=== PATIENT | female | born 1970 | race Caucasian/White ===

== ENCOUNTER 2016-10-17 22:33 | Emergency (ER) | payer BC ==
--- NOTE | 2016-10-17 22:57 | EDM.PDOC ---
ED HPI GENERAL MEDICAL PROBLEM - General Chief Complaint: Abdominal Pain Stated Complaint: ABDOMINAL PAIN Time Seen by Provider: 10/17/16 22:57 Source of Information: Reports: Patient - History of Present Illness INITIAL COMMENTS - FREE TEXT/NARRATIVE: HISTORY AND PHYSICAL: History of present illness: []Right upper quadrant pain over the last 4 days associated with greasy food over the holiday reclined tonight complains of 6 out of 10 right upper quadrant pain No fever nausea vomiting chills sweats Review of systems: As per history of present illness and below otherwise all systems reviewed and negative. Past medical history: As per history of present illness and as reviewed below otherwise noncontributory. Surgical history: As per history of present illness and as reviewed below otherwise noncontributory. Social history: No reported history of drug or alcohol abuse. Family history: As per history of present illness and as reviewed below otherwise noncontributory. Physical exam: HEENT: Atraumatic, normocephalic, pupils reactive, negative for conjunctival pallor or scleral icterus, mucous membranes moist, throat clear, neck supple, nontender, trachea midline. Lungs: Clear to auscultation, breath sounds equal bilaterally, chest nontender. Heart: S1S2, regular, negative for clicks, rubs, or JVD. Abdomen: Soft, nondistended, nontender in lower quadrants right upper quadrant tenderness on deep palpation. Negative for masses or hepatosplenomegaly. Negative for costovertebral tenderness. Pelvis: Stable nontender. Genitourinary: Deferred. Rectal: Deferred. Extremities: Atraumatic, negative for cords or calf pain. Neurovascular unremarkable. Neuro: Awake, alert, oriented. Cranial nerves II through XII unremarkable. Cerebellum unremarkable. Motor and sensory unremarkable throughout. Exam nonfocal. Diagnostics: []Lab as below Therapeutics: []1 L normal saline bolus Toradol 30 mg IV Protonix 80 mg IV Zofran 8 mg IV Cipro 500 mg by mouth twice a day #20 no refill [place] Karnes diet Follow-up with surgery referral provided Impression: Right upper quadrant pain-resolved Cholelithiasis Biliary colic Definitive disposition and diagnosis as appropriate pending reevaluation and review of above. abdomen Pain Score (Numeric/FACES): 8 - Related Data Allergies Allergy/AdvReac Type Severity Reaction Status Date / Time Penicillins Allergy Rash Verified 10/17/16 22:56 Home Meds: Home Meds Control 10/17/16 [History] ED ROS GENERAL - Review of Systems Review Of Systems: ROS reveals no pertinent complaints other than HPI. ED EXAM, GENERAL - Physical Exam Exam: See Below Course - Vital Signs Last Recorded V/S: Last Vital Signs Temp 36.3 C 10/17/16 23:01 Pulse 66 10/17/16 23:01 Resp 18 10/17/16 23:01 BP 178/93 H 10/17/16 23:01 Pulse Ox 100 10/17/16 23:01 - Orders/Labs/Meds Orders: Active Orders 24 hr Category Date Time Status Abdomen Ltd [US] Stat Exams 10/17/16 23:41 Taken Sodium Chloride 0.9% [Normal Saline] 1,000 ml Med 10/17/16 23:00 Active IV STAT Medication Orders Sodium Chloride (Normal Saline) 1,000 mls @ 125 mls/hr IV STAT JONATHAN Last Admin: 10/18/16 00:12 Dose: 125 mls/hr Labs: Laboratory Tests 10/17/16 10/17/16 10/17/16 Range/Units 23:30 23:30 23:30 WBC 14.15 H (4.0-11.0) K/uL RBC 5.08 (4.30-5.90) M/uL Hgb 14.0 (12.0-16.0) g/dL Hct 42.2 (36.0-46.0) % MCV 83.1 (80.0-98.0) fL MCH 27.6 (27.0-32.0) pg MCHC 33.2 (31.0-37.0) g/dL RDW Std Deviation 42.0 (28.0-62.0) fl RDW Coeff of Quan 14 (11.0-15.0) % Plt Count 399 (150-400) K/uL MPV 11.10 (7.40-12.00) fL Neut % (Auto) 76.5 (48.0-80.0) % Lymph % (Auto) 15.0 L (16.0-40.0) % [place] % (Auto) 6.1 (0.0-15.0) % Eos % (Auto) 1.9 (0.0-7.0) % Baso % (Auto) 0.5 (0.0-1.5) % Neut # (Auto) 10.8 H (1.4-5.7) K/uL Lymph # (Auto) 2.1 (0.6-2.4) K/uL [place] # (Auto) 0.9 H (0.0-0.8) K/uL Eos # (Auto) 0.3 (0.0-0.7) K/uL Baso # (Auto) 0.1 (0.0-0.1) K/uL Nucleated RBC % 0.0 /100WBC Nucleated RBCs # 0 K/uL Sodium 140 (136-146) mmol/L Potassium 3.6 (3.5-5.1) mmol/L Chloride 107 (98-110) mmol/L Carbon Dioxide 21 (21-31) mmol/L BUN 13 (6.0-23.0) mg/dL Creatinine 0.9 (0.6-1.5) mg/dL Est Cr Clr Drug Dosing 68.88 mL/min Estimated GFR (MDRD) > 60.0 ml/min Glucose 121 H (60-110) mg/dL Calcium 9.6 (8.8-10.8) mg/dL Total Bilirubin 0.3 (0.1-1.5) mg/dL AST 13 (5-40) IU/L ALT 16 (8-54) IU/L Alkaline Phosphatase 97 (40-150) Troponin I < 0.10 (0.0-0.29) NG/ML Total Protein 7.4 (6.0-8.0) g/dL Albumin 4.3 (3.5-5.0) g/dL Globulin 3.1 (2.0-3.5) g/dL Albumin/Globulin Ratio 1.4 (1.3-2.8) Amylase 67 (10-90) U/L Lipase 31 (7-80) U/L Urine Color Urine Appearance Urine pH (5.0-8.0) Ur Specific [place] (1.001-1.035) Urine Protein (NEGATIVE) mg/dL Urine Glucose (UA) (NEGATIVE) mg/dL Urine Ketones (NEGATIVE) mg/dL Urine Occult Blood (NEGATIVE) Urine Nitrite (NEGATIVE) Urine Bilirubin (NEGATIVE) Urine Urobilinogen (<2.0) EU/dL Ur Leukocyte Esterase (NEGATIVE) Urine RBC (0-2/HPF) Urine WBC (0-5/HPF) Ur Epithelial Cells (NONE-FEW) Amorphous Sediment (NEGATIVE) Urine Bacteria (NEGATIVE) Urine Mucus (NONE-MOD) Urine HCG, Qual (NEGATIVE) 10/17/16 10/17/16 Range/Units 23:30 23:30 WBC (4.0-11.0) K/uL RBC (4.30-5.90) M/uL Hgb (12.0-16.0) g/dL Hct (36.0-46.0) % MCV (80.0-98.0) fL MCH (27.0-32.0) pg MCHC (31.0-37.0) g/dL RDW Std Deviation (28.0-62.0) fl RDW Coeff of Quan (11.0-15.0) % Plt Count (150-400) K/uL MPV (7.40-12.00) fL Neut % (Auto) (48.0-80.0) % Lymph % (Auto) (16.0-40.0) % [place] % (Auto) (0.0-15.0) % Eos % (Auto) (0.0-7.0) % Baso % (Auto) (0.0-1.5) % Neut # (Auto) (1.4-5.7) K/uL Lymph # (Auto) (0.6-2.4) K/uL [place] # (Auto) (0.0-0.8) K/uL Eos # (Auto) (0.0-0.7) K/uL Baso # (Auto) (0.0-0.1) K/uL Nucleated RBC % /100WBC Nucleated RBCs # K/uL Sodium (136-146) mmol/L Potassium (3.5-5.1) mmol/L Chloride (98-110) mmol/L Carbon Dioxide (21-31) mmol/L BUN (6.0-23.0) mg/dL Creatinine (0.6-1.5) mg/dL Est Cr Clr Drug Dosing mL/min Estimated GFR (MDRD) ml/min Glucose (60-110) mg/dL Calcium (8.8-10.8) mg/dL Total Bilirubin (0.1-1.5) mg/dL AST (5-40) IU/L ALT (8-54) IU/L Alkaline Phosphatase (40-150) Troponin I (0.0-0.29) NG/ML Total Protein (6.0-8.0) g/dL Albumin (3.5-5.0) g/dL Globulin (2.0-3.5) g/dL Albumin/Globulin Ratio (1.3-2.8) Amylase (10-90) U/L Lipase (7-80) U/L Urine Color YELLOW Urine Appearance CLEAR Urine pH 5.5 (5.0-8.0) Ur Specific [place] >= 1.030 (1.001-1.035) Urine Protein NEGATIVE (NEGATIVE) mg/dL Urine Glucose (UA) NEGATIVE (NEGATIVE) mg/dL Urine Ketones NEGATIVE (NEGATIVE) mg/dL Urine Occult Blood TRACE-LYSED (NEGATIVE) Urine Nitrite NEGATIVE (NEGATIVE) Urine Bilirubin NEGATIVE (NEGATIVE) Urine Urobilinogen 0.2 (<2.0) EU/dL Ur Leukocyte Esterase SMALL (NEGATIVE) Urine RBC 0-2 (0-2/HPF) Urine WBC 2-5 (0-5/HPF) Ur Epithelial Cells FEW (NONE-FEW) Amorphous Sediment FEW (NEGATIVE) Urine Bacteria 1+ H (NEGATIVE) Urine Mucus FEW (NONE-MOD) Urine HCG, Qual NEGATIVE (NEGATIVE) Meds: Medications Generic Name Dose Route Start Last Admin Trade Name Comfort PRN Reason Stop Dose Admin Sodium Chloride 1,000 mls @ 125 mls/hr 10/17/16 23:00 10/18/16 00:12 Normal Saline IV 125 mls/hr STAT JONATHAN Administration Discontinued Medications Generic Name Dose Route Start Last Admin Trade Name Comfort PRN Reason Stop Dose Admin Ciprofloxacin 500 mg 10/18/16 01:20 Ciprofloxacin Hcl PO 10/18/16 01:21 ONETIME ONE Ketorolac Tromethamine 30 mg 10/17/16 23:41 10/18/16 00:12 Toradol IVPUSH 10/17/16 23:42 30 mg ONETIME ONE Administration Ondansetron HCl 8 mg 10/17/16 23:41 10/18/16 00:12 Zofran IVPUSH 10/17/16 23:42 8 mg ONETIME ONE Administration Pantoprazole Sodium 80 mg 10/17/16 23:41 10/18/16 00:32 Protonix Iv IVPUSH 10/17/16 23:42 80 mg .BOLUS ONE Administration Departure - Departure Time of Disposition: 01:25 Disposition: Home, Self-Care 01 Condition: Good Clinical Impression: Cholelithiasis, Biliary colic - Discharge Information Referrals: PCP,None [Primary Care Provider] - Forms: ED Department Discharge Additional Instructions: Medication as prescribed Karnes diet as recommended again avoid greasy food Follow-up with general surgery ER referral provided, call and confirm appointment to schedule appropriate follow-up in the a.m. Return if symptoms persist or worsen or fever nausea vomiting chills sweats or if pain returns and is not tolerated [facility] - General Surgery Professional [address], [address] [place] [address] The following information is given to patients seen in the emergency department who are being discharged to home. This information is to outline your options for follow-up care. We provide all patients seen in our emergency department with a follow-up referral. The need for follow-up, as well as the timing and circumstances, are variable depending upon the specifics of your emergency department visit. If you don't have a primary care physician on staff, we will provide you with a referral. We always advise you to contact your personal physician following an emergency department visit to inform them of the circumstance of the visit and for follow-up with them and/or the need for any referrals to a consulting specialist. The emergency department will also refer you to a specialist when appropriate. This referral assures that you have the opportunity for follow-up care with a specialist. All of these measure are taken in an effort to provide you with optimal care, which includes your follow-up. Under all circumstances we always encourage you to contact your private physician who remains a resource for coordinating your care. When calling for follow-up care, please make the office aware that this follow-up is from your recent emergency room visit. If for any reason you are refused follow-up, please contact the [facility] emergency department at and asked to speak to the emergency department charge nurse. - My Orders Last 24 Hours: My Active Orders 10/17/16 23:00 Sodium Chloride 0.9% [Normal Saline] 1,000 ml IV STAT 10/17/16 23:41 Abdomen Ltd [US] Stat - Assessment/Plan Last 24 Hours: My Active Orders 10/17/16 23:00 Sodium Chloride 0.9% [Normal Saline] 1,000 ml IV STAT 10/17/16 23:41 Abdomen Ltd [US] Stat
[2016-10-17] MEDS ORDERED: Sodium Chloride 0.9% 1,000 ML IV SCH (23:00)
[2016-10-17] MEDS ORDERED: Pantoprazole 40 MG Vial IVPUSH ONE (23:41)
[2016-10-17] MEDS ORDERED: Ondansetron 4 MG/2 ML SDV IVPUSH ONE (23:41)
[2016-10-17] MEDS ORDERED: Ketorolac 30 MG/ML SDV IVPUSH ONE (23:41)
[2016-10-18 00:08] LABS: CHLORIDE,CL 107 mmol/L (98-110); SODIUM,NA 140 mmol/L (136-146)
[2016-10-18] MEDS ORDERED: Ciprofloxacin 500 MG Tab PO ONE (01:20)
[2016-10-18 01:40] VITALS: BP 130/73
--- NOTE | 2016-10-18 18:13 | US ---
EXAM DATE: 10/17/16 PATIENT'S AGE: 46 Patient: AARON SOLOMON Facility: [place], [place] Site . Site : [id number] Study: US Abdomen [id number]/3/2017 12:18:24 AM Ordering Physician: Maico Swift Final Report: TECHNIQUE: Right upper quadrant ultrasound. INDICATION: Epigastric pain. FINDINGS: Pancreas partially visualized and normal where seen. The liver is echogenic consistent with fatty infiltration. There are stones in the gallbladder. Normal gallbladder wall thickness. No pericholecystic fluid. Negative sonographic Ledbetter`s sign. No intra or extrahepatic bile duct dilation. The right kidney is sonographically normal without mass or hydronephrosis and measures 10.8 cm pole to pole. IMPRESSION: 1. Cholelithiasis without specific sonographic evidence for acute cholecystitis. 2. Hepatic steatosis. Dictated by Rashad Rebolledo MD @ 10/18/2016 12:45:07 AM Dictated by: Rashad Rebolledo MD @ 10/18/2016 00:45:12 (Electronic Signature) Report Signed by Proxy. [facility]ENTERJackson
== END 2016-10-18 01:47 | disposition home or self-care (01) ==
LOC: MW.ED 22:33
DX: K80.70 Calculus of gallbladder and bile duct without cholecystitis without obstruction (principal); Z88.0 Allergy status to penicillin
CPT/HCPCS: 76705; 80053; 81001; 81025; 82150; 83690; 84484; 85025; 96361; 96374; 96375; 99284; A9270; C9113; J1885; J2405; J7040; 99282

== ENCOUNTER 2016-10-22 06:41 | Day surgery (SDC) | payer BC ==
[~2016-10-22 06:41] MED LIST: cefOXitin 2 GM in Premix Bag 1 BAG IV ONE
[2016-10-22] MEDS: Lactated Ringers 1,000 ML IV SCH ×2 (07:19→11:00)
--- NOTE | 2016-10-22 07:20 | PCM.PREANE ---
Preanesthetic Assessment - Anesthesia/Transfusion/Family Hx Anesthesia History: No Prior Anesthesia Family History of Anesthesia Reaction: No Transfusion History: No Prior Transfusion(s) - Review of Systems General: No Symptoms Pulmonary: No Symptoms Cardiovascular: No Symptoms Gastrointestinal: No symptoms Neurological: No Symptoms Other: Reports: None - Physical Assessment NPO Status Date: 10/21/16 Height: 1.63 m Weight: 78.2 kg ASA Class: 1 Mental Status: Alert & Oriented x3 Airway Class: Mallampati = 1 Dentition: Reports: Normal Dentition ROM/Head Extension: Full Lungs: Clear to auscultation, Normal respiratory effort Cardiovascular: Regular Rate, Regular Rhythm - Lab Values: Laboratory Last Values Urine HCG, Qual NEGATIVE (NEGATIVE) 10/22/16 07:03 - Allergies Allergies/Adverse Reactions: Allergies Allergy/AdvReac Type Severity Reaction Status Date / Time Penicillins Allergy Rash Verified 10/17/16 22:56 - Anesthesia Plan Pre-Op Medication Ordered: Other - Acknowledgements Anesthesia Type Planned: General Anesthesia Pt an Appropriate Candidate for the Planned Anesthesia: Yes Alternatives and Risks of Anesthesia Discussed w Pt/Guardian: Yes Pt/Guardian Understands and Agrees with Anesthesia Plan: Yes PreAnesthesia Questionnaire - Past Health History Medical/Surgical History: Denies Medical/Surgical History [employer] History: Reports: - Past Surgical History Head Surgeries/Procedures: Reports: None - SUBSTANCE USE Smoking Status *Q: Never Smoker Recreational Drug Use History: No - HOME MEDS Home Medications: Home Meds Desogestrel-Ethinyl Estradiol [Octrachel 28 Day Tablet] 1 tab PO ASDIRECTED [History] - CURRENT (IN HOUSE) MEDS Current Meds: Current Medications Lactated Ringer's (Ringers, Lactated) 1,000 mls @ 125 mls/hr IV ASDIRECTED [facility] Discontinued Medications Cefoxitin Sodium 2 gm/ Premix 50 mls @ 100 mls/hr IV ONETIME ONE Stop: 10/22/16 06:29
[2016-10-22] MEDS ORDERED: Scopolamine 1.5 MG Transdermal Patch TRDERM PRN (07:22)
[2016-10-22] MEDS ORDERED: Lidocaine 2% 5 ML SDV ONE (07:26)
[2016-10-22] MEDS ORDERED: Midazolam 1 MG/ML 2 ML SDV ONE (07:27)
[2016-10-22] MEDS ORDERED: fentaNYL 250 MCG/5 ML SDV ONE (07:27)
[2016-10-22] MEDS ORDERED: Propofol 200 MG/20 ML SDV ONE ×2 (07:27→08:44)
[2016-10-22] MEDS ORDERED: Rocuronium 10 MG/ML 10 ML Syringe ONE (07:29)
[2016-10-22] MEDS ORDERED: Neostigmine Methylsulfate 1 MG/ML 5 ML Syringe ONE (07:29)
[2016-10-22] MEDS ORDERED: Ondansetron 4 MG/2 ML SDV ONE (07:29)
[2016-10-22] MEDS ORDERED: Ketorolac 30 MG/ML SDV ONE (07:29)
[2016-10-22] MEDS ORDERED: Bupivacaine 0.5% 10 ML SDV ONE (07:32)
[2016-10-22] MEDS ORDERED: ceFAZolin 1 GM Vial ONE (07:32)
[2016-10-22] MEDS ORDERED: HYDROmorphone 2 MG/ML Syringe ONE (07:37)
[2016-10-22] MEDS ORDERED: ePHEDrine 50 MG/ML SDV ONE (08:15)
[2016-10-22] MEDS ORDERED: fentaNYL 100 MCG/2 ML SDV ONE (08:41)
[2016-10-22] MEDS ORDERED: Acetaminophen/HYDROcodone 325-5 MG Tab PO PRN (09:47)
[2016-10-22] MEDS ORDERED: Morphine 10 MG/ML Syringe IVPUSH PRN (09:47)
[2016-10-22] MEDS ORDERED: Ondansetron 4 MG/2 ML SDV IVPUSH PRN (09:47)
[2016-10-22] MEDS ORDERED: HYDROmorphone 2 MG/ML Syringe IVPUSH ONE (09:50)
--- NOTE | 2016-10-22 09:50 | PCM.OPNOTE ---
- General Post-Op/Procedure Note Date of Surgery/Procedure: 10/22/16 Operative Procedure(s): Laparoscopic cholecystectomy Pre Op Diagnosis: Cholelithiasis Post-Op Diagnosis: Cholelithiasis with cholecystitis Anesthesia Technique: General ET tube (ASA I) Primary Surgeon: Eric Dimas Fluid Replacement, Intraop: 1,500 EBL in mLs: 10 Condition: Good Free Text/Narrative:: Dictation [id number] CPT code 31606
[2016-10-22] MEDS ORDERED: Lactated Ringers 1,000 ML IV SCH (10:00)
[2016-10-22] MEDS: fentaNYL 100 MCG/2 ML SDV IVPUSH PRN ×2 (10:01→10:22)
--- NOTE | 2016-10-22 10:29 | PCM.POSTAN ---
POST ANESTHESIA ASSESSMENT - MENTAL STATUS Mental Status: alert, oriented - RESPIRATORY Respiratory Status: respiratory rate WNL, airway patent, O2 saturation stable - CARDIOVASCULAR CV Status: pulse rate WNL, blood pressure stable - GASTROINTESTINAL GI Status: no symptoms - PAIN Pain Score: 5 - POST OP HYDRATION Hydration Status: adequate & stable
--- NOTE | 2016-10-22 12:58 | PCM48HPAN ---
Post Anesthesia Note - EVALUATION WITHIN 48HRS OF ANESTHETIC Vital Signs in Normal Range: Yes Patient Participated in Evaluation: Yes Respiratory Function Stable: Yes Airway Patent: Yes Cardiovascular Function Stable: Yes Hydration Status Stable: Yes Pain Control Satisfactory: Yes Nausea and Vomiting Control Satisfactory: Yes Mental Status Recovered: Yes
[2016-10-22] MEDS ORDERED: Ondansetron 4 MG/2 ML SDV IVPUSH ONE (13:00)
[2016-10-22] MEDS ORDERED: Haloperidol Lactate 5 MG/ML SDV IM ONE ×2 (13:02)
--- NOTE | 2016-10-22 13:15 | OR ---
SURGEON: Eric Dimas M.D. DATE OF PROCEDURE: 10/22/2016 OPERATION PERFORMED: Laparoscopic cholecystectomy. ANESTHESIA: General endotracheal. ASA CLASSIFICATION: I. PREOPERATIVE DIAGNOSIS: Symptomatic cholelithiasis. POSTOPERATIVE DIAGNOSIS: Cholelithiasis with cholecystitis. ESTIMATED BLOOD LOSS: 10 mL. INTRAOPERATIVE FLUID REPLACEMENT: 1500 mL of crystalloid. DESCRIPTION OF PROCEDURE: The patient was taken to the operating room, placed on the operating table in the supine position. Time-out was called for appropriate identification of the patient and procedure. Thigh-high TEDs and sequential compression boots were placed. Following satisfactory attainment of the general endotracheal anesthesia, a Shearer catheter was placed in the patient's urinary bladder. The abdomen was prepped with DuraPrep solution. Sterile drapes were applied. The skin below the umbilicus was infiltrated with 0.5% Marcaine solution. The skin incision was made and deepened into the subcutaneous tissue. The Veress needle was introduced into the peritoneal cavity. Drop test was positive. Carbon dioxide pneumoperitoneum was established, however, we had trouble getting a good pneumoperitoneum. With a partial pneumoperitoneum, the 5 mm camera and port were placed through the infraumbilical incision identifying the peritoneal cavity. The patient did have significant adhesions to the right upper quadrant, but I was able to maneuver the camera around those adhesions. Under camera vision, 12 mm subxiphoid, 5 mm midclavicular, and 5 mm anterior axillary ports were placed. Each incision had preemptively been infiltrated with 0.5% Marcaine solution. The gallbladder was grasped and did show an acute inflammatory process. It was not necessary to decompress the gallbladder. The cholecystohepatic triangle was dissected free identifying first cystic duct and obtaining a good critical view before hemoclipping this structure and dividing it with a laparoscopic Metzenbaum scissor. Anterior and posterior cystic arteries were also identified and handled in a similar fashion. Once they were dissected free with good critical views, they were able to be hemoclipped proximally and distally before division with laparoscopic Metzenbaum scissor. The gallbladder was then dissected away from its bed using electrocautery. No bile was spilled during the procedure. Bleeding sites along the liver bed were electrocoagulated, however, there was oozing present. Once the gallbladder was amputated, this was placed in an Endopouch. The right upper quadrant was irrigated with 1% Ancef solution. All fluid was aspirated. Surgicel was placed into the bed of the gallbladder. The right hemidiaphragm was then irrigated with 250 mL of saline with 20 mL of 0.5% Marcaine solution. That fluid was left in place. The Endopouch containing gallbladder and 12 mm subxiphoid ports were removed without difficulty. Under camera vision, the anterior axillary and midclavicular ports were removed and finally, the infraumbilical camera port were removed. The sites were inspected for hemostasis and small bleeding sites were electrocoagulated. The subxiphoid and infraumbilical incisions were closed in 2 layers approximating the subcutaneous tissue with 3-0 Polysorb and the skin with subcuticular 4-0 Monocryl. The anterior, axillary, and midclavicular incisions were closed with subcuticular 4-0 Monocryl. All incisions were reinforced with Steri-Strips and sterile Tegaderm pads were placed. Sponge, needle, and instrument counts were all correct. The Shearer catheter was removed prior to emergence from anesthesia. Following emergence from anesthesia and extubation, the patient was taken to recovery room in stable condition. LOIS REARDON /[id number]
[2016-10-22] MEDS ORDERED: Ondansetron 4 MG Tab.DIS PO ONE (13:50)
[2016-10-22] MEDS ORDERED: Acetaminophen 1,000 MG in Premix Bag 1 BAG IV ONE (14:11)
--- NOTE | 2016-10-22 14:18 | PCM.SN ---
- Free Text/Narrative Note: Pt developed PONV after taking a bite of toast. Rxed with zofran and haldoperidol. Pain now 5 but unwilling to give more narcotic because of sedation and nausea. Will give iv tylenol 1 gm and advise pt no oral acetraminophen meds for at least 4 hrs.
[2016-10-22 15:06] VITALS: BP 117/76
== END 2016-10-22 15:00 | disposition home or self-care (01) ==
LOC: MW.SDS 06:41
PROVIDERS: ATTEND Surgery
PROC: 0FT44ZZ Resection of Gallbladder, Percutaneous Endoscopic Approach (ICD-10-PCS; principal; 2016-10-22)
DX: K80.10 Calculus of gallbladder with chronic cholecystitis without obstruction (principal); Z88.0 Allergy status to penicillin; Z79.899 Other long term (current) drug therapy
CPT/HCPCS: 47562; 81025; 88304; A9270; J1170; J1630; J2250; J2405; J3010; J7120; 00790; J0690; J1885; J2704

== ENCOUNTER 2020-10-14 06:49 | Day surgery (SDC) | payer BC ==
[~2020-10-14 06:49] MED LIST changes: +Lactated Ringers 1,000 ML IV SCH; +Sodium Chloride 0.9% 10 ML SDV IV PRN; +Sodium Chloride 0.9% 10 ML Syringe FLUSH PRN; +Sodium Chloride 0.9% 2.5 ML Syringe FLUSH PRN; -cefOXitin 2 GM in Premix Bag 1 BAG IV ONE
[2020-10-14] MEDS ORDERED: fentaNYL 100 MCG/2 ML SDV ONE (07:03)
[2020-10-14] MEDS ORDERED: Ondansetron 4 MG/2 ML SDV ONE (07:03)
[2020-10-14] MEDS ORDERED: Lidocaine 2% 5 ML SDV ONE (07:04)
[2020-10-14] MEDS ORDERED: Midazolam 1 MG/ML 2 ML SDV ONE (07:04)
[2020-10-14] MEDS ORDERED: propofoL 50 ML ONE (07:13)
--- NOTE | 2020-10-14 07:29 | PCM.PREANE ---
Preanesthetic Assessment - Anesthesia/Transfusion/Family Hx Anesthesia History: Prior Anesthesia Reaction Type of Anesthesia Reaction: Excessive Nausea/Vomiting Other Type of Anesthesia Reaction Comment: "nausea after gallbladder surgery" Family History of Anesthesia Reaction: No Transfusion History: No Prior Transfusion(s) - Review of Systems General: No Symptoms Pulmonary: No Symptoms Cardiovascular: No Symptoms Gastrointestinal: No Symptoms Neurological: No Symptoms Other: Reports: None - Physical Assessment NPO Status Date: 10/14/20 NPO Status Time: 00:00 Vital Signs: Last Vital Signs Temp 97.0 F 10/14/20 07:10 Pulse 93 10/14/20 07:10 Resp 16 10/14/20 07:10 BP 137/87 10/14/20 07:10 Pulse Ox 100 10/14/20 07:10 Height: 5 ft 4 in Weight: 175 lb ASA Class: 1 Mental Status: Alert & Oriented x3 Airway Class: Mallampati = 2 Dentition: Reports: Normal Dentition Thyro-Mental Finger Breadths: 4 Mouth Opening Finger Breadths: 4 ROM/Head Extension: Full Lungs: Clear to Auscultation, Normal Respiratory Effort Cardiovascular: Regular Rate, Regular Rhythm - Lab Values: Laboratory Last Values Urine HCG, Qual NEGATIVE (NEGATIVE) 10/14/20 07:00 - Allergies Allergies/Adverse Reactions: Allergies Allergy/AdvReac Type Severity Reaction Status Date / Time Penicillins Allergy Rash Verified 10/08/20 08:20 - Blood Blood Available: No - Anesthesia Plan Pre-Op Medication Ordered: None - Acknowledgements Anesthesia Type Planned: General Anesthesia Pt an Appropriate Candidate for the Planned Anesthesia: Yes Alternatives and Risks of Anesthesia Discussed w Pt/Guardian: Yes Pt/Guardian Understands and Agrees with Anesthesia Plan: Yes PreAnesthesia Questionnaire - Past Health History Medical/Surgical History: Denies Medical/Surgical History Gastrointestinal History: Reports: Cholelithiasis [employer] History: Reports: - Past Surgical History Head Surgeries/Procedures: Reports: None GI Surgical History: Reports: Cholecystectomy - SUBSTANCE USE Tobacco Use Status *Q: Never Tobacco User - HOME MEDS Home Medications: Home Meds . [No Known Home Meds] 10/08/20 [History] - CURRENT (IN HOUSE) MEDS Current Meds: Current Medications Lactated Ringer's (Ringers, Lactated) 1,000 mls @ 125 mls/hr IV ASDIRECTED [facility] Last Admin: 10/14/20 07:18 Dose: 125 mls/hr Documented by: Sodium Chloride (Sodium Chloride 0.9% 10 Ml Syringe) 10 ml FLUSH ASDIRECTED PRN PRN Reason: Keep Vein Open Sodium Chloride (Sodium Chloride 0.9% 2.5 Ml Syringe) 2.5 ml FLUSH ASDIRECTED PRN PRN Reason: Keep Vein Open Sodium Chloride (Sodium Chloride 0.9% 10 Ml Syringe) 10 ml FLUSH ASDIRECTED PRN PRN Reason: Keep Vein Open Sodium Chloride (Sodium Chloride 0.9% 2.5 Ml Syringe) 2.5 ml FLUSH ASDIRECTED PRN PRN Reason: Keep Vein Open Sodium Chloride (Sodium Chloride 0.9% 10 Ml Sdv) 10 ml IV ASDIRECTED PRN PRN Reason: IV Use Discontinued Medications Fentanyl (Fentanyl 100 Mcg/2 Ml Sdv) Confirm Administered Dose 100 mcg .ROUTE .STK-MED ONE Stop: 10/14/20 07:04 Propofol (Diprivan 50 Ml) Confirm Administered Dose 50 mls @ as directed .ROUTE .STK-MED ONE Stop: 10/14/20 07:14 Lidocaine (Lidocaine 2% 5 Ml Sdv) Confirm Administered Dose 5 ml .ROUTE .STK-MED ONE Stop: 10/14/20 07:05 Midazolam HCl (Midazolam 1 Mg/Ml 2 Ml Sdv) Confirm Administered Dose 2 mg .ROUTE .STK-MED ONE Stop: 10/14/20 07:05 Ondansetron HCl (Ondansetron 4 Mg/2 Ml Sdv) Confirm Administered Dose 4 mg .ROUTE .STK-MED ONE Stop: 10/14/20 07:04
--- NOTE | 2020-10-14 08:21 | PCM.POSTAN ---
POST ANESTHESIA ASSESSMENT - MENTAL STATUS Mental Status: Alert, Oriented - VITAL SIGNS Vital Signs: Last Vital Signs Temp 97.0 F 10/14/20 07:10 Pulse 93 10/14/20 07:10 Resp 16 10/14/20 07:10 BP 137/87 10/14/20 07:10 Pulse Ox 100 10/14/20 07:10 - RESPIRATORY Respiratory Status: Respiratory Rate WNL, Airway Patent, O2 Saturation Stable - CARDIOVASCULAR CV Status: Pulse Rate WNL, Blood Pressure Stable - GASTROINTESTINAL GI Status: No Symptoms - POST OP HYDRATION Hydration Status: Adequate & Stable
--- NOTE | 2020-10-14 08:21 | PCM48HPAN ---
Post Anesthesia Note - EVALUATION WITHIN 48HRS OF ANESTHETIC Vital Signs in Normal Range: Yes Patient Participated in Evaluation: Yes Respiratory Function Stable: Yes Airway Patent: Yes Cardiovascular Function Stable: Yes Hydration Status Stable: Yes Pain Control Satisfactory: Yes Nausea and Vomiting Control Satisfactory: Yes Mental Status Recovered: Yes Vital Signs: Last Vital Signs Temp 97.0 F 10/14/20 07:10 Pulse 93 10/14/20 07:10 Resp 16 10/14/20 07:10 BP 137/87 10/14/20 07:10 Pulse Ox 100 10/14/20 07:10
--- NOTE | 2020-10-14 08:24 | PCM.OPNOTE ---
- General Post-Op/Procedure Note Date of Surgery/Procedure: 10/14/20 Operative Procedure(s): Screening colonoscopy Findings: Normal colonoscopy Pre Op Diagnosis: Encounter for screening colonoscopy for high risk patient Post-Op Diagnosis: same Anesthesia Technique: MAC Primary Surgeon: Marla Gracia Condition: Good
[2020-10-14 08:40] VITALS: BP 124/70; PULSE 80
--- NOTE | 2020-10-14 12:03 | OR ---
SURGEON: MARLA GRACIA MD DATE OF PROCEDURE: 10/14/2020 PREOPERATIVE DIAGNOSIS: Encounter for screening colonoscopy for high-risk individual. POSTOPERATIVE DIAGNOSIS: Encounter for screening colonoscopy for high-risk individual. PROCEDURE PERFORMED: Screening colonoscopy. PRIMARY SURGEON: Marla Gracia MD ANESTHESIA: MAC. INSTRUMENT USED: Olympus colonoscope. EXTENT OF EXAM: To the cecum. PREPARATION: Good. LIMITATIONS: None. 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 She has had no changes in her bowel habits. No one in her family has had colon cancer, but breast cancer does run in the family. The patient and I explained the need for a screening colonoscopy. I explained the procedure, expected perioperative course, and the risks. The patient verbalized understanding and wishes to proceed. PROCEDURE IN DETAIL: The patient was brought into the endoscopy suite and placed in the left lateral decubitus position. A time-out was completed verifying the patient's name, age, date of , allergies, and procedure to be performed. Monitored anesthesia care was induced and continuous oxygen was provided via face mask throughout the procedure. After adequate sedation was achieved, a digital rectal exam was performed. This exam was within normal limits. A well-lubricated colonoscope was inserted in the rectum and advanced under direct visualization to the level of the cecum. The cecum was identified by both visual and anatomic landmarks. A photograph was taken of the cecal cap; however, due to looping of the scope more proximally, I was unable to retroflex the scope. The scope was then fully withdrawn while examining the color, texture, anatomy, and integrity of the mucosa from the cecum to the anal canal. The findings were consistent with normal colonic mucosa. The scope was then brought into the rectum and retroflexed to allow visualization of the anal canal opening. This appeared normal, and a photograph was taken. The scope was then straightened out and fully withdrawn. The cecum to anus time was 14 minutes. The patient tolerated the procedure well and was transferred to the PACU in stable condition. ENDOSCOPIC DIAGNOSIS: Normal colonoscopy. RECOMMENDATIONS: Follow up in clinic in 5 years for repeat colonoscopy. SHAWNA / ALEXYS /[id number]
== END 2020-10-14 08:53 | disposition home or self-care (01) ==
LOC: MW.SDS 06:49
PROVIDERS: ATTEND Surgery
DX: Z12.11 Encounter for screening for malignant neoplasm of colon (principal); Z15.09 Genetic susceptibility to other malignant neoplasm; E78.5 Hyperlipidemia, unspecified; E66.3 Overweight; Z88.0 Allergy status to penicillin; Z90.49 Acquired absence of other specified parts of digestive tract; Z68.30 Body mass index [BMI] 30.0-30.9, adult
CPT/HCPCS: 45378; 81025; J2250; J2405; J2704; J3010; J7120; 00812